=== PATIENT | male | born 1945 | race Asian ===

== ENCOUNTER 2016-09-20 20:24 | Outpatient (CLI) | payer MEDICARE, OTHER | END 2016-09-20 20:25 | disposition EMS.NT | DX: Z04.1 Encounter for examination and observation following transport accident (principal); V47.5XXA Car driver injured in collision with fixed or stationary object in traffic accident, initial encounter; Y92.413 State road as the place of occurrence of the external cause ==

== ENCOUNTER 2016-09-20 21:21 | Emergency (ER) | payer OTHER, MEDICARE | END 2016-09-20 23:45 | disposition home or self-care (01) | DX: F10.129 Alcohol abuse with intoxication, unspecified (principal); Y90.8 Blood alcohol level of 240 mg/100 ml or more; S61.512A Laceration without foreign body of left wrist, initial encounter; S61.511A Laceration without foreign body of right wrist, initial encounter; V47.0XXA Car driver injured in collision with fixed or stationary object in nontraffic accident, initial encounter ==

== ENCOUNTER 2017-05-26 12:37 | Day surgery (SDC) | payer MEDICARE ==
[2017-05-26] MEDS ORDERED: LACTATED RINGERS 1,000 ML IV ONE (13:40)
[2017-05-26] MEDS ORDERED: MIDAZOLAM 2 MG/2 ML VIAL IVP ONE (15:04)
[2017-05-26] MEDS ORDERED: fentaNYL 100 MCG/2 ML VIAL IVP ONE (15:04)
[2017-05-26] MEDS ORDERED: LIDO GARGLE 30 ML BOTTLE TOP ONE (15:20)
[2017-05-26] MEDS ORDERED: BENZOCAINE/TETRACAINE/BUTAMBEN SPRAY 56 GM TOP ONE (15:20)
[2017-05-26 17:00] VITALS: BP 140/81
== END 2017-05-26 12:38 | disposition home or self-care (01) ==
LOC: SDS 12:37
PROVIDERS: ATTEND Surgery
PROC: 0DJD8ZZ Inspection of Lower Intestinal Tract, Via Natural or Artificial Opening Endoscopic (ICD-10-PCS; principal; 2017-05-26 13:45)
PROC: 0DB38ZX Excision of Lower Esophagus, Via Natural or Artificial Opening Endoscopic, Diagnostic (ICD-10-PCS; 2017-05-26 13:45)
DX: K57.30 Diverticulosis of large intestine without perforation or abscess without bleeding (principal); K29.70 Gastritis, unspecified, without bleeding; K21.9 Gastro-esophageal reflux disease without esophagitis; K44.9 Diaphragmatic hernia without obstruction or gangrene; F17.210 Nicotine dependence, cigarettes, uncomplicated
CPT/HCPCS: 43239; 45378; 87081; A9270; J7120

== ENCOUNTER 2018-06-21 22:08 | Emergency (ER) | payer MEDICARE ==
[2018-06-21] MEDS ORDERED: SODIUM CHLORIDE 0.9% 1,000 ML IV ONE (22:39)
[2018-06-21] MEDS ORDERED: MORPHINE 10 MG/ML VIAL IVP STA (22:39)
[2018-06-21] MEDS ORDERED: ONDANSETRON 4 MG/2 ML VIAL IVP STA (22:40)
[2018-06-21 22:55] LABS: BASOPHILS # (AUTO) 0.1 10^3/uL (0.0-0.1); BASOPHILS % (AUTO) 0.5 %; EOSINOPHILS # (AUTO) 0.1 10^3/uL (0.0-0.7); EOSINOPHILS % (AUTO) 1.2 %; HGB - HEMOGLOBIN 14.6 g/dL (14.0-18.0); LYMPHOCYTES # (AUTO) 1.4 10^3/uL (1.5-3.5); LYMPHOCYTES % (AUTO) 11.6 %; MEAN CORPUSCULAR HEMOGLOBIN 31.3 pg (27.0-31.0); MEAN CORPUSCULAR HGB CONC 34.2 g/dL (32.0-36.0); MEAN CORPUSCULAR VOLUME 91.7 fL (80.0-94.0); MEAN PLATELET VOLUME 8.1 fL (7.4-11.4); MONOCYTES # (AUTO) 0.8 10^3/uL (0.0-1.0); MONOCYTES % (AUTO) 6.7 %; NEUTROPHILS # (AUTO) 9.7 10^3/uL (1.5-6.6); PLT - PLATELET COUNT 281 10^3/uL (130-450); RED BLOOD COUNT 4.65 10^6/uL (4.70-6.10); RED CELL DISTRIBUTION WIDTH 13.7 % (12.0-15.0); WHITE BLOOD COUNT 12.2 x10^3/uL (4.8-10.8)
[2018-06-21 23:02] LABS: INR 1.1 (0.8-1.2); PT - PROTHROMBIN TIME 12.6 secs (9.9-12.6)
[2018-06-21 23:14] LABS: ALBUMIN 4.4 g/dL (3.2-5.5); ALBUMIN/GLOBULIN RATIO 1.5 (1.0-2.2); BILIRUBIN,TOTAL 0.7 mg/dL (0.2-1.0); CALCIUM 9.2 mg/dL (8.5-10.3); CREATININE 0.8 mg/dL (0.6-1.2); TOTAL PROTEIN 7.4 g/dL (6.7-8.2)
[2018-06-21] MEDS ORDERED: fentaNYL 100 MCG/2 ML VIAL IVP STA (23:32)
[2018-06-21] MEDS ORDERED: IOVERSOL 320 100 ML VIAL IVP ONE (23:56)
[2018-06-22] MEDS ORDERED: IOVERSOL 320 100 ML VIAL IVP ONE (00:35)
--- NOTE | 2018-06-22 00:44 | CT Report ---
Reason: Abdominal pain with rectal bleeding. Procedure Date: 06/22/2018 Accession Number: [id number] / [id number] Procedure: CT - Abdomen/Pelvis W/ CPT Code: FULL RESULT: EXAM: CT ABDOMEN AND PELVIS EXAM DATE: 06/22/2018 12:08 AM. CLINICAL HISTORY: Abdominal pain with rectal bleeding. COMPARISONS: None. TECHNIQUE: Routine helical CT imaging was performed through the abdomen and pelvis. IV contrast: 90 mL Optiray 320. Enteric contrast: No. Reconstructions: Coronal and sagittal. In accordance with CT protocol optimization, one or more of the following dose reduction techniques were utilized for this exam: automated exposure control, adjustment of mA and/or KV based on patient size, or use of iterative reconstructive technique. FINDINGS: Lung Bases: Unremarkable. Liver: Normal. No masses. Gallbladder/Bile Ducts: Unremarkable. Spleen: Normal. Pancreas: Normal. Adrenal Glands: Normal. Kidneys: Multiple left renal cysts measuring up to 4.1 cm. No suspicious renal mass or hydronephrosis. Peritoneal Cavity/Bowel: The left colon is underdistended. No evidence of diverticulitis. No bowel obstruction, free air or fluid collections. No evidence of appendicitis. Pelvic Organs: Normal. The bladder and visualized pelvic organs are within normal limits. Vasculature: There is a 4.1 cm aneurysm involving the infrarenal abdominal aorta with focal dissection. Bones: No significant abnormality. Other: None. IMPRESSION: 1. No bowel obstruction, fluid collections or acute inflammatory process. 2. There is a 4.1 cm infrarenal abdominal aortic aneurysm with focal intimal dissection. [facility]
[2018-06-22] MEDS ORDERED: LABETALOL 20 MG/4 ML SYRINGE IVP STA (01:15)
--- NOTE | 2018-06-22 01:16 | ED Physician Documentation ---
PD HPI ABD PAIN - Stated complaint Stated Complaint: RECTAL BLEEDING - Chief complaint Chief Complaint: Abd Pain - History obtained from History obtained from: Patient, Family - History of Present Illness Timing - onset: How many hours ago (8) Timing - details: Still present Quality: Pain Location: Other (lower abdomen) Associated symptoms: Nausea, Vomiting, Diarrhea, Hematochezia Similar symptoms before: Has not had sx before - Additional information Additional information: The patient is a 73-year-old male who presents with lower abdominal pain that started about 8 hours prior to arrival. He reports associated nausea with vomit ing and diarrhea. Just prior to arrival he had an episode of bloody diarrhea. He associates his symptoms with drinking apple cider that they had pressed earlier in the day. He denies fever, lightheadedness, or difficulty with urination. He denies history of similar symptoms in the past. His past history is significant for hemorrhoidectomy and appendectomy. He occasionally gets epigastric discomfort for which he takes [id number] antacid. Review of Systems Constitutional: denies: Fever, Fatigue Nose: denies: Congestion Throat: denies: Sore throat Cardiac: denies: Chest pain / pressure Respiratory: denies: Dyspnea, Cough GI: reports: Abdominal Pain, Nausea, Vomiting, Diarrhea, Bloody / black stool : denies: Dysuria Skin: denies: Rash Musculoskeletal: reports: Back pain. denies: Extremity pain Neurologic: denies: Focal weakness, Numbness, Syncope, Headache PD PAST MEDICAL HISTORY - Past Medical History Cardiovascular: None, High cholesterol Respiratory: None Endocrine/Autoimmune: None GI: GERD, Hemorrhoids : None HEENT: None Psych: None Musculoskeletal: None Derm: None - Past Surgical History General: Appendectomy - Allergies Allergies/Adverse Reactions: Allergies Allergy/AdvReac Type Severity Reaction Status Date / Time No Known Drug Allergies Allergy Verified 06/21/18 22:19 - Social History Does the pt smoke?: No Smoking Status: Never smoker - POLST Patient has POLST: No PD ED PE NORMAL - Vitals Vital signs reviewed: Yes (Systolic hypertension) - General General: Alert and oriented X 3, Well developed/nourished - HEENT HEENT: Atraumatic, Moist mucous membranes - Neck Neck: No adenopathy, No JVD - Cardiac Cardiac: RRR, No murmur - Respiratory Respiratory: No respiratory distress, Clear bilaterally - Abdomen Abdomen: Normal bowel sounds, Soft, Non distended, Other (Mild tenderness to palpation in the left lower quadrant, without rebound or guarding.) - Rectal Rectal: Other (Relatively constricted anal opening. No stool in the rectal vault, but scant bright red blood on the exam glove.) - Back Back: No CVA TTP, No spinal TTP - Derm Derm: No rash - Extremities Extremities: No edema, No calf tenderness / cord - Neuro Neuro: Alert and oriented X 3, No motor deficit, No sensory deficit Results - Vitals Vitals: Oxygen O2 Source Room air - Labs Labs: Laboratory Tests 06/21/18 06/21/18 06/21/18 22:45 22:45 22:45 WBC 12.2 H RBC 4.65 L Hgb 14.6 Hct 42.6 MCV 91.7 MCH 31.3 H MCHC 34.2 RDW 13.7 Plt Count 281 MPV 8.1 Neut # (Auto) 9.7 H Lymph # (Auto) 1.4 L [place] # (Auto) 0.8 Eos # (Auto) 0.1 Baso # (Auto) 0.1 Absolute Nucleated RBC 0.01 Nucleated RBC % 0.1 PT 12.6 INR 1.1 Sodium 139 Potassium 3.6 Chloride 103 Carbon Dioxide 26 Anion Gap 10.0 BUN 13 Creatinine 0.8 Estimated GFR (MDRD) 94 Glucose 111 H Calcium 9.2 Total Bilirubin 0.7 AST 22 ALT 15 Alkaline Phosphatase 47 Total Protein 7.4 Albumin 4.4 Globulin 3.0 Albumin/Globulin Ratio 1.5 Lipase 40 - Rads (name of study) CT abd/pelvis w/IV contrast Radiology: Prelim report reviewed, EMP read contemporaneously, See rad report (1) No bowel obstruction, fluid collections, or acute inflammatory process. 2) There is a 4.1 cm infrarenal abdominal aortic aneurysm with focal intimal dissection.) PD MEDICAL DECISION MAKING - ED course Complexity details: reviewed results, re-evaluated patient, considered differential, d/w patient, d/w family, d/w actuarial consultant ED course: Patient's presentation is significant for infrarenal abdominal aortic aneurysm with intimal dissection. This was seen on CT scan that was performed for lower abdominal pain with rectal bleeding. There was no other abnormality detected on CT scan. The patient's labs reveal a mildly elevated white blood cell count of 12.2, with normal hemoglobin and hematocrit of 14.6 and 42.6. Chemistry panel is unremarkable, with normal electrolytes, liver enzymes, and renal function. I NR is normal at 1.1. Treatment in the emergency department included administration of normal saline IV, Zofran 4 mg IV and morphine 5 mg IV. His nausea resolved but his pain continued. Fentanyl 75 mcg was administered IV and this relieved his pain. Following the CT results labetalol 20 mg was administered IV, followed by labetalol drip. His blood pressure was initially 151/89 and went as high as 176/101, with pulse of 74. After labetalol his blood pressure has come down to 144/78 with a pulse of 52. I discussed his condition with Dr. Colin, vascular surgeon at [facility] in [place]. He will accept the patient in transfer. The patient is being transferred by [facility]. Transfer forms were completed. Departure - Departure Disposition: 02 Transfer Acute Care Hosp Clinical Impression: Abdominal aortic aneurysm dissection Discharge Date/Time: 06/22/18 04:05
[2018-06-22] MEDS ORDERED: LABETALOL VIAL 200 MG in SODIUM CHLORIDE 0.9% 160 ML IV STA (02:04)
[2018-06-22] MEDS ORDERED: LABETALOL 5 MG/1 ML 20 ML MDV ONE (02:20)
[2018-06-22] MEDS ORDERED: SODIUM CHLORIDE 0.9% 1,000 ML IV ONE (03:20)
[2018-06-22] MEDS ORDERED: fentaNYL 100 MCG/2 ML VIAL IVP STA (03:26)
[2018-06-22 03:51] VITALS: BP 128/78
== END 2018-06-22 04:05 | disposition short-term general hospital (02) ==
LOC: ED 22:08
DX: I71.02 Dissection of abdominal aorta (principal); D72.829 Elevated white blood cell count, unspecified
CPT/HCPCS: 36415; 74177; 80053; 83690; 85025; 85610; 96361; 96365; 96375; 99284; 99285; Q9967

== ENCOUNTER 2018-06-22 04:01 | Outpatient (CLI) | payer MEDICARE | END 2018-06-22 04:02 | disposition short-term general hospital (02) | LOC: EMS 04:01 | PROVIDERS: ATTEND Surgery | DX: I71.02 Dissection of abdominal aorta (principal) | CPT/HCPCS: A0170; A0425; A0426 ==

== ENCOUNTER 2019-01-05 10:44 | Outpatient (CLI) | payer MEDICARE ==
[2019-01-05 11:25] LABS: CREATININE 0.7 mg/dL (0.6-1.2)
[2019-01-05] MEDS ORDERED: IOVERSOL 320 100 ML VIAL IVP ONE ×2 (11:30→13:41)
--- NOTE | 2019-01-05 14:12 | CT Report ---
Reason: ABDOMINAL PAIN Procedure Date: 01/05/2019 Accession Number: [id number] / [id number] Procedure: CT - Abdomen/Pelvis W CPT Code: FULL RESULT: EXAM: CT ABDOMEN AND PELVIS EXAM DATE: 01/05/2019 12:16 PM. CLINICAL HISTORY: Abdominal pain. COMPARISONS: ABDOMEN/PELVIS W/ 06/22/2018 12:07 AM. TECHNIQUE: Routine helical CT imaging was performed through the abdomen and pelvis. IV contrast: 100 mL Optiray 320. Enteric contrast: No. Reconstructions: Coronal and sagittal. In accordance with CT protocol optimization, one or more of the following dose reduction techniques were utilized for this exam: automated exposure control, adjustment of mA and/or KV based on patient size, or use of iterative reconstructive technique. FINDINGS: Lung Bases: Dependent changes versus lung base scarring, mild. Liver: Normal. No masses. Gallbladder/Bile Ducts: Unremarkable. Spleen: Normal. Pancreas: Normal. Adrenal Glands: Normal. Kidneys: There is a nonobstructing 1 cm left renal calculus as well as left renal cysts and bilateral renal hypodensities which are too small to characterize. Peritoneal Cavity/Bowel: There is no bowel obstruction, free fluid or free air. There is no lymphadenopathy or mass. Pelvic Organs: Normal. The bladder and visualized pelvic organs are within normal limits. Vasculature: Previously seen partially thrombosed infrarenal abdominal aortic aneurysm has enlarged. On image 38 series 3 axially it measures 4.2 x 3.4 cm, previously 4.0 x 3.2 cm when measured in similar fashion. Similarly, sagittal view as seen on image 39 series 6 now demonstrates AP dimension of 3.6 cm compared to 3.2 cm on previous comparable image. Coronally, as seen on image 19 series 5, there are foci of new penetrating ulceration within the overall aneurysmal process. Bones: No significant abnormality. Other: None. IMPRESSION: Interval enlargement of the known aneurysm as described in detail above. [facility] The call report notification system was initiated by Dr. Eric Veronica at 02:06 PM on 01/05/2019. ADDENDUM: 01/05/19 14:17 The above call report findings were discussed with Freya Abreu by Dr. Eric Veronica at 02:17 PM on 01/05/2019.
== END 2019-01-05 10:45 | disposition home or self-care (01) ==
LOC: LAB 10:44 → DI 10:45
PROVIDERS: ATTEND Internal Medicine
DX: I71.4 Abdominal aortic aneurysm, without rupture (principal); R10.9 Unspecified abdominal pain; Z79.899 Other long term (current) drug therapy
CPT/HCPCS: 36415; 74177; 82565; Q9967